=== PATIENT | male | born 1955 | race Caucasian/White ===

== ENCOUNTER 2018-07-14 10:30 | Emergency (ER) | payer BC ==
[~2018-07-14] VITALS: Ht 185.4 cm; Wt 111.8 kg
[~2018-07-14 10:30] MED LIST: BACTRIM DS1 TAB PO; CEPHALEXIN500 MG PO; CIPROFLOXACN500 MG PO; GABAPENTIN300 MG PO; GLYBURIDE5 MG PO; LANTUS100 MG/ML SC; LEVOTHYROXIN100 MCG PO; LISINOPRIL2.5 MG PO; LORTAB 10-325 M1 TAB PO; METAN3 PO; METFORMIN1000 MG PO; MORPHINE SUL30 M5 PO; NEURONTIN300 MG OR; NEURONTIN300 MG PO; ULTRAM50 M1 PO; VICODIN HP1 TA1 PO; VITAMIN D50000 UN1 PO
[2018-07-14 11:34] LABS: HEMOGLOBIN 12.1 g/dl (14.0-18.0); IMMATURE GRANULOCYTES 0.8 % (0.0-5.0); MEAN CELL VOLUME 89.1 fL CALC (80.0-100.0); MEAN CORPUSCULAR HGB CONC 33.6 g/L CALC (32.0-36.0); NEUT# 9.95 thou/uL (1.82-7.42); RED BLOOD COUNT 4.04 mill/uL (4.70-6.10); RED CELL DISTRI WIDTH 13.3 % (11.5-15.5)
[2018-07-14 11:57] LABS: BUN 31 mg/dL (8-23); BUN/CREATININE RATIO 26 (12-20 (CALC)); CARBON DIOXIDE 22 mmol/l (22-30); CHLORIDE 101 mmol/l (95-108); CREATININE 1.2 mg/dL (0.7-1.3); GFR > 60 ML/MIN (>=60 (CALC)); GFR FOR AFR.AMER. > 60 ML/MIN (>=60 (CALC)); POTASSIUM 4.7 mmol/l (3.5-5.1)
[2018-07-14 11:59] LABS: ANION GAP 13 (6-22 (CALC)); SODIUM 131 mmol/l (137-146)
[2018-07-14 13:40] LABS: ACT PARTIAL THROMBO TIME 33.6 SECONDS (20.0-32.5); INTERNATIONAL NORMALIZED RATIO 0.9 RATIO (0.7-1.3); PROTHROMBIN TIME 9.8 SECONDS (9.0-12.5)
[2018-07-14 14:29] VITALS: BP 136/62
== END 2018-07-14 14:21 | DRG 281 ==
LOC: ED 10:30
PROVIDERS: Family Medicine
DX: I21.4 Non-ST elevation (NSTEMI) myocardial infarction (principal); L03.115 Cellulitis of right lower limb; I10 Essential (primary) hypertension; E11.9 Type 2 diabetes mellitus without complications; E03.9 Hypothyroidism, unspecified; F17.210 Nicotine dependence, cigarettes, uncomplicated

== ENCOUNTER 2021-02-03 | Emergency (ER) | payer MEDICARE ==
[2021-02-03 16:42] LABS: HEMATOCRIT 38.4 % (39.0-50.0); HEMOGLOBIN 12.9 g/dl (14.0-18.0); MEAN CELL VOLUME 91.2 fL CALC (80.0-100.0); MEAN CORPUSCULAR HGB 30.6 pG CALC (26.0-32.0); MEAN CORPUSCULAR HGB CONC 33.6 g/dL CAL (32.0-36.0); NEUT# 4.61 thou/uL (1.82-7.42); RED BLOOD COUNT 4.21 mill/uL (4.70-6.10); RED CELL DISTRI WIDTH 13.9 % (11.5-15.5)
[2021-02-03 17:01] LABS: IMMATURE GRANULOCYTES 0.5 % (0.0-5.0)
[2021-02-03 17:08] LABS: ALBUMIN 3.3 g/dL (3.2-5.0); ALKALINE PHOSPHATASE 52 u/l (38-126); ANION GAP 9 (6-22 (CALC)); BUN 29 mg/dL (8-23); BUN/CREATININE RATIO 24 (12-20 (CALC)); C-REACTIVE PROTEIN 5.4 mg/dL (0-0.9); CARBON DIOXIDE 24 mmol/l (22-30); CHLORIDE 105 mmol/l (95-108); CREATININE 1.2 mg/dL (0.7-1.3); GFR 60 ML/MIN (>=60 (CALC)); GFR FOR AFR.AMER. > 60 ML/MIN (>=60 (CALC)); POTASSIUM 4.4 mmol/l (3.5-5.1); SODIUM 133 mmol/l (137-146); TOTAL PROTEIN 6.8 g/dL (6.3-8.2)
[2021-02-03 17:13] LABS: BILIRUBIN, TOTAL 0.8 mg/dL (0.0-1.4); SGOT/AST 35 u/l (19-48)
[2021-02-03] MEDS ORDERED: ZPAK PO (19:11)
[2021-02-03] MEDS ORDERED: DECADRON4 MG PO (19:11)
== END 2021-02-03 19:13 | disposition left against medical advice (07) ==
PROVIDERS: Family Medicine
DX: U07.1 COVID-19 (principal); J12.82 Pneumonia due to coronavirus disease 2019; J96.00 Acute respiratory failure, unspecified whether with hypoxia or hypercapnia; I10 Essential (primary) hypertension; E11.9 Type 2 diabetes mellitus without complications; E03.9 Hypothyroidism, unspecified; F17.200 Nicotine dependence, unspecified, uncomplicated; Z91.19 Patient's noncompliance with other medical treatment and regimen; Z79.4 Long term (current) use of insulin

== ENCOUNTER 2021-02-09 18:26 | Observation (INO) | payer MEDICARE ==
[~2021-02-09] VITALS: Ht 185.4 cm; Wt 126.0 kg
[~2021-02-09 18:26] MED LIST changes: +DECADRON4 MG PO; +ZPAK PO
--- NOTE | 2021-02-09 18:26 | NUR ---
PT WHEELED TO ROOM. PT HAS HISTORY OF COVID AND PLACED ON ISOLATION
[2021-02-09 18:58] LABS: IMMATURE GRANULOCYTES 0.5 % (0.0-5.0); MEAN CELL VOLUME 90.5 fL CALC (80.0-100.0); MEAN CORPUSCULAR HGB 30.2 pG CALC (26.0-32.0); MEAN CORPUSCULAR HGB CONC 33.3 g/dL CAL (32.0-36.0); NEUT# 12.87 thou/uL (1.82-7.42); RED BLOOD COUNT 4.97 mill/uL (4.70-6.10); RED CELL DISTRI WIDTH 13.1 % (11.5-15.5)
[2021-02-09 19:11] LABS: ALBUMIN 3.5 g/dL (3.2-5.0); ALKALINE PHOSPHATASE 71 u/l (38-126); ANION GAP 11 (6-22 (CALC)); BILIRUBIN, TOTAL 0.8 mg/dL (0.0-1.4); BUN 27 mg/dL (8-23); BUN/CREATININE RATIO 29 (12-20 (CALC)); CARBON DIOXIDE 24 mmol/l (22-30); CHLORIDE 102 mmol/l (95-108); CREATININE 0.9 mg/dL (0.7-1.3); GFR > 60 ML/MIN (>=60 (CALC)); GFR FOR AFR.AMER. > 60 ML/MIN (>=60 (CALC)); LIPASE 79 u/l (23-300); POTASSIUM 4.6 mmol/l (3.5-5.1); SGOT/AST 20 u/l (19-48); SODIUM 132 mmol/l (137-146); TOTAL PROTEIN 6.8 g/dL (6.3-8.2)
--- NOTE | 2021-02-09 19:15 | NUR ---
ENTERED ROOM PT STATES "WHAT DOES SOMEONE HAVE TO DO TO GET SOME CREATURE COMFORTS AROUND HERE, I'VE BEEN HERE FOR 3 HRS AND AIN'T GOT NOTHING," WHEN ASKED WHAT HE WANTED PT STAETS COFFEE, A BLANKET, PISS JUST THE USUALS" COMFORT MEASURES PROVIDED AND CALL BREWSTER WITHIN REACH
--- NOTE | 2021-02-09 19:50 | NUR ---
COFFEE BLANKET AND URINAL PROVIDED EARLIER REQUESTED, CALL BREWSTER WITHIN REACH.
--- NOTE | 2021-02-09 20:26 | NUR ---
PT STATES THIS PLACE AIN'T NOTHING TO BRAG ABOUT, CONTINUES ON REFERRING TO GENERAL STAFF FUCKING IDIOTS ETC... REQUESTED PT TO CONSIDER THAT HE WAS REFERRING TO VETERINARY LABORATORY TECHNICIAN WELL AND PT STATES NAH YOU GOT A PASS" HE THEN MOVES ON TO DIFFERENT SUBJECT. CALL BREWSTER WITHIN REACH.
--- NOTE | 2021-02-09 21:21 | NUR ---
PT AWARE OF STILL AWAITING RADIOLOGY EXAMS, REMAINS SITTING UP ON EDGE OF BED.
[2021-02-09 21:58] LABS: URINE BILIRUBIN - DIPSTICK NEGATIVE (NEGATIVE); URINE BLOOD DIPSTICK NEGATIVE (NEGATIVE); URINE COLOR YELLOW; URINE GLUCOSE - DIPSTICK >=1000 mg/dL (NEGATIVE); URINE KETONE 15 mg/dL (NEGATIVE); URINE LEUK ESTERASE NEGATIVE (NEGATIVE); URINE PROTEIN - DIPSTICK 100 mg/dL (NEG-TRACE); URINE UROBILINOGEN - DIPSTICK 0.2 E.U./dL (0.2)
[2021-02-09 22:00] LABS: URINE NITRITE - DIPSTICK NEGATIVE (Negative)
--- NOTE | 2021-02-09 22:00 | NUR ---
SPOKE WITH VIA TELEPHONE REGARDING PLANNED ADMISSIONA DN DX, INFROMED WILL CALL BACK ONCE ROOM ACQUIRED.
--- NOTE | 2021-02-09 23:01 | NUR ---
PT STATES PAIN IS MUCH IMPROVED AND HE IS FEELING BETTER, IV ABT INFUSING ORDERED
--- NOTE | 2021-02-09 23:07 | NUR ---
ATTEMPTED TO CALL REPORT TO MED SURG
[2021-02-09] MEDS ORDERED: LISINOPRIL20 MG PO (23:22)
--- NOTE | 2021-02-09 23:35 | NUR ---
B/P ELEVATED MEDICATED ORDERED WILL MONITOR FOR IMPROVEMENT.
--- NOTE | 2021-02-10 00:14 | NUR ---
PT MORE CALM AND COOPERATVIE SINCE MEDICATED FOR PAIN, IVF AND ABT INFUSING WITHOUT INCIDENT, AWARE OF PLANNED ADMISSION.
--- NOTE | 2021-02-10 00:16 | NUR ---
REPORT CALLED TO EDER JOSEPH ON MED SURG
--- NOTE | 2021-02-10 00:25 | NUR ---
PT TRANSPORTED TO MED SURG VIA WHEELCHAIR ON TELE, ALL BELONGINGS WITH PT.
[2021-02-10 00:40] VITALS: BP 138/86
--- NOTE | 2021-02-10 01:13 | NUR ---
PT RECEIVED FROM ED TO ROOM 280. ARRIVES VIA WC ACCOMPANIED BY LIZTY JOSEPH. PT AMBULATORY TO BED. GAIT UNSTEADY. PT DENIES PAIN AT THIS TIME. ORIENTED TO UNIT, ROOM, CALL BREWSTER, LIGHTS, TV. ICE WATER AND COFFEE PROVIDED. CALL BREWSTER WITHIN REACH. AGREES TO CALL PRN.
--- NOTE | 2021-02-10 04:00 | NUR ---
PT RESTING IN BED, NO SIGNS OF DISTRESS NOTED, RESP EVEN AND UNLABORED. PT VOICES NO NEEDS OR COMPLAINTS AT THIS TIME. CALL LIGHT IN REACH, CONTINUE TO MONITOR.
[2021-02-10 04:34] VITALS: BP 151/81
--- NOTE | 2021-02-10 07:00 | NUR ---
RECIEVED REPORT FROM OPAL GAINES
[2021-02-10 07:10] VITALS: BP 131/71
--- NOTE | 2021-02-10 08:05 | NUR ---
PT RESTING IN SEMI FOWLERS POSITION. PT IS A/O X3. ASSESSMENT AND VITALS COMPLETED. BP 131/74, HR 90, O2 94% ON ROOM AIR. RESPIRATIONS ARE EVEN AND UNLABORED. LUNG SOUNDS CLEAR. HEART RHYTHM NORMAL WITH TELE IN PLACE, SR WITH 1 AVB. BOWEL SOUNDS ARE ACTIVE, LAST REPORTED 02/09/21. ABD FIRM AND DISTENDED. PT COMPLAINS OF ABD PAIN STATING "I'VE BEEN CONSTIPATED THE PAST COUPLE OF DAYS, I NEED SOMETHING TO HELP ME AGO AND MY PAIN MEDICATION." PT INFORMED THAT MORPHINE PO WAS THE ONLY PAIN MEDICATION AVAILABLE AT THIS TIME. AND NEW ORDERS FOR PAIN MEDICATION AND LAXATIVE WOULD BE RECIEVED FROM MD. PT STATED " YEAH I NEED BOTH MY MORPHINE AND MY HYDROCODONE, THOSE WORK FOR MY BACK AND ANKLE. I NEED SOMETHING ELSE FOR MY STOMACH." VEGETABLE TESTER EDUCATED PT ON PAIN MEDICATION NOT BEING SELECTIVE AND HOW IT WORKS FOR ALL PAINS. REGINALDO MELCHORRP NOTFIED. NO NEW ORDERS OBTAINED AT THIS TIME. SKIN INTACT. #20G IN RAC INFUSING WITH IVF PER ORDER, SITE REMAINS HEALTHY AND PATENT. RADIAL AND PEDAL PULSES ARE STRONG. PT DENIES OF ANY NEEDS BUT PAIN MEDICATION AT THIS TIME. WILL CONTINUE TO MONITOR.
--- NOTE | 2021-02-10 08:40 | NUR ---
LAB AT BEDSIDE. PT REQUEST PAIN MEDICATION BEFORE ALLOWING LAB OBTAIN LABS. MORPHINE PO OFFERED. PT REFUSED STATING "THE MORPHINE DONT WORK IF I DONT TAKE IT WITH THE HYDROCODONE." WRITTER VERBALIZED UNDERSTANDING BUT INFORMED PT THAT IT WAS THE ONLY PAIN MEDICATION AVAIBLE UNTIL ORDERS FROM MD WAS OBTAINED. PT REFUSED STATING " DONT COME BACK UNTIL YOU HAVE BOTH." JILLANRP NOTIFIED. NO NEW ORDERS OBTAINED AT THIS TIME. TRACTOR OPERATOR LASER LEVELING INFORMED THAT PT WILL HAVE TO BE SEEN IN ROUNDING BEFORE MORE PAIN MEDICATION WOULD BE ORDERED.
[2021-02-10 08:48] LABS: HEMATOCRIT 43.3 % (39.0-50.0); HEMOGLOBIN 14.5 g/dl (14.0-18.0); IMMATURE GRANULOCYTES 0.6 % (0.0-5.0); MEAN CELL VOLUME 89.5 fL CALC (80.0-100.0); MEAN CORPUSCULAR HGB CONC 33.5 g/dL CAL (32.0-36.0); NEUT# 15.34 thou/uL (1.82-7.42); RED BLOOD COUNT 4.84 mill/uL (4.70-6.10); RED CELL DISTRI WIDTH 12.9 % (11.5-15.5)
--- NOTE | 2021-02-10 08:57 | NUR ---
PT COMPLAINING THAT STAFF HAS NOT GIVEN PAIN MEDICATION. KIARA MELCHOR NOTFIED. INVESTMENT ACCOUNTANT TOLD MORPHINE IS AVAILBLE NOW AND AFTER ROUNDING, ADDITIONAL WILL BE ORDER. PT STATED " I NEED MY MORPHINE AND HYDROCODONE TOGETHER." PT CONTINUE TO STATE " YOU HAVE BEEN TREATING ME INHUMANE. YOU HAVE BEEN HOLDING MY PAIN MEDICATIONS AND NOT GIVEN ME ANYTHING TO EAT.IM LEAVING NOW." INVESTMENT ACCOUNTANT EXPLAINED THAT HIS TRAY IS SITTING RIGHT IN FRONT OF HIM AND ADDITIONAL PAIN MEDICATION WILL BE ORDERED AFTER ROUNDING. PT EDUCATED ON RISK OF SIGNING AMA. PT VERBLAIZED UNDERSTANDING.
--- NOTE | 2021-02-10 09:01 | NUR ---
ON PHONE SPEAKING TO . CALLING NAMES. AGREED TO STAY UNTIL MD ROUNDS. #20G IN RAC PREVIOUSLY REMOVED. PT NOTIFIED THAT IF HE STAYS A NEW ONE WILL BE NEEDED TO START.
[2021-02-10 09:02] LABS: ALBUMIN 3.2 g/dL (3.2-5.0); ALKALINE PHOSPHATASE 74 u/l (38-126); ANION GAP 10 (6-22 (CALC)); BILIRUBIN, TOTAL 0.8 mg/dL (0.0-1.4); BUN 24 mg/dL (8-23); BUN/CREATININE RATIO 26 (12-20 (CALC)); CARBON DIOXIDE 22 mmol/l (22-30); CHLORIDE 104 mmol/l (95-108); CREATININE 0.9 mg/dL (0.7-1.3); GFR > 60 ML/MIN (>=60 (CALC)); GFR FOR AFR.AMER. > 60 ML/MIN (>=60 (CALC)); MAGNESIUM 1.9 mg/dL (1.6-2.3); POTASSIUM 4.5 mmol/l (3.5-5.1); SGOT/AST 23 u/l (19-48); SODIUM 132 mmol/l (137-146); TOTAL PROTEIN 6.4 g/dL (6.3-8.2)
--- NOTE | 2021-02-10 09:22 | NUR ---
DR MURPHY AT BEDSIDE
--- NOTE | 2021-02-10 09:49 | NUR ---
STOOL SOFTNER, MOM , MIRLAX AND SUPOSITORY ADMINISTERED. PT TOLERATED WELL.
[2021-02-10 10:02] VITALS: BP 165/85
--- NOTE | 2021-02-10 12:15 | NUR ---
PT SLEEPING IN SEMI FOWLERS POSITION. REPSIRATIONS ARE EVEN AND UNLABORED WITH NO DISRTESS NOTED. TELE MONITORING REMAINS IN PLACE.NO IV SITE. NO SIGNS OF ANY PAINS OR DISCOMFORTS. ALL SAFETY PRECAUTIONS ARE IN PLACE WITH CALL LIGHT IN REACH. WILL CONTINUE TO MONITOR.
--- NOTE | 2021-02-10 13:49 | NUR ---
LARGE BM NOTED.
[2021-02-10] MEDS ORDERED: SENOKOT EXTRA17.2 MG PO (13:55)
[2021-02-10] MEDS ORDERED: MIRALAX MIX-IN17 GM PO (13:56)
[2021-02-10] MEDS ORDERED: AMOX/K CLAV875 M1 PO (13:57)
[2021-02-10] MEDS ORDERED: CITROMA PO (13:57)
--- NOTE | 2021-02-10 14:38 | NUR ---
PT EDUCATED ON DISCHARGE INSTRUCTIONS AND NEW MEDICATIONS.PT VERBLAIZED UNDERSTANDING. TELE MONITORING REMOVED, ER NOTIFIED. PT GETTING DRESSED. ALL SAFETY PRECAUTIONS ARE IN PLACE. WILL CONTINUE TO MONITOR.
--- NOTE | 2021-02-10 14:40 | NUR ---
Discharge instructions given. Patient verbalizes understanding of same. Discharged in stable condition via Wheelchair to Home with staff. All belongings sent with pt. PT D/C HOME VIA WHEELCHAIR IN STABLE CONDITION ACCOMPAINED BY STAFF AND WITH ALL D/C INSTRUCTIONS AND BELONGINGS.
== END 2021-02-10 14:40 | disposition home or self-care (01) ==
LOC: ED 18:26 → ED-I 22:13 → ED 22:34 → MS2 22:35
PROVIDERS: Family Medicine; Nurse Practitioner; ADMIT Internal Medicine; ATTEND Internal Medicine
DX: J18.9 Pneumonia, unspecified organism (principal); K59.00 Constipation, unspecified; I10 Essential (primary) hypertension; E11.40 Type 2 diabetes mellitus with diabetic neuropathy, unspecified; E11.65 Type 2 diabetes mellitus with hyperglycemia; G89.4 Chronic pain syndrome; I25.10 Atherosclerotic heart disease of native coronary artery without angina pectoris; E03.9 Hypothyroidism, unspecified; F17.200 Nicotine dependence, unspecified, uncomplicated; Z79.891 Long term (current) use of opiate analgesic; Z79.4 Long term (current) use of insulin; Z95.5 Presence of coronary angioplasty implant and graft; Z20.822 Contact with and (suspected) exposure to COVID-19
CPT/HCPCS: G0378; Q9967